=== PATIENT | female | born 2000 | race Caucasian/White ===

== ENCOUNTER 2023-07-22 09:43 | Inpatient (IN) | payer MEDICAID ==
[~2023-07-22] VITALS: Ht 152.4 cm; Wt 63.5 kg
[2023-07-22] MEDS: LACTATED RINGERS 1,000 ML IV SCH (15:00)
[2023-07-22] MEDS ORDERED: MISOPROSTOL 100MCG TABLET RC SCH (15:30)
[2023-07-22] MEDS ORDERED: METHYLERGONOVINE MALEATE 0.2 MG/ML IM PRN (15:30)
[2023-07-22] MEDS ORDERED: OXYTOCIN 30 UNITS/500ML NS PMX 500 ML IV SCH ×2 (15:30→19:45)
[2023-07-22] MEDS ORDERED: CARBOPROST TROMETHAMINE 250 MCG/ML AMPUL IM PRN (15:30)
[2023-07-22] MEDS ORDERED: MORPHINE SULFATE/PF 1MG/ML 10ML AMP ONE (17:26)
[2023-07-22] MEDS ORDERED: OXYTOCIN 10 UNITS/ML 1ML ONE (17:36)
[2023-07-22] MEDS ORDERED: DEXAMETHASONE 4MG/ML 1ML VIAL ONE (17:36)
[2023-07-22] MEDS ORDERED: CEFAZOLIN SODIUM 1000MG/VIAL ONE (17:36)
[2023-07-22] MEDS ORDERED: KETOROLAC 60MG/2ML VIAL IM ONE (17:36)
[2023-07-22] MEDS ORDERED: ONDANSETRON HCL 4MG/2ML INJ ONE (17:36)
[2023-07-22 18:09] LABS: BASOPHILS % 0.3 % (0.0-2.0); EOSINOPHILS % 0.4 % (0.0-5.0); HEMOGLOBIN. 12.7 g/dL (12.0-16.0); LYMPHOCYTES % 39.1 % (20.0-50.0); MEAN CORPUSCULAR HGB CONC 33.4 g/dL (31.0-37.0); MEAN PLATELET VOLUME 10.8 fl (7.4-10.4); MONOCYTES % 5.3 % (2.0-8.0); NEUTROPHILS % 54.9 % (40.0-76.0); PLATELET 143 x1000/uL (130-400); RED BLOOD CELL COUNT 4.23 mill/uL (4.2-5.4); RED CELL DISTRIBUTION WIDTH 16.2 % (11.6-14.6); WHITE BLOOD COUNT 6.1 x1000/uL (4.5-11.0)
[2023-07-22 18:20] LABS: INR 0.9; PARTIAL THROMBOPLASTIN TIME 25.8 sec (23.4-31.0)
[2023-07-22] MEDS ORDERED: EPHEDRINE SULFATE 50MG/ML VIAL ONE (18:56)
[2023-07-22 19:08] LABS: HEPATITIS B SURFACE ANTIGEN NEGATIVE; RUBELLA IGG 53.4 IU/mL (4.99-10)
[2023-07-22] MEDS ORDERED: MORPHINE SULFATE 10 MG/ML CPJ IV PRN (19:15)
[2023-07-22] MEDS ORDERED: NALOXONE HCL 0.4 MG/ML 1ML VIAL IV PRN (19:15)
[2023-07-22] MEDS ORDERED: FENTANYL CITRATE/PF 50MCG/ML 2ML VIAL IV PRN (19:15)
[2023-07-22] MEDS ORDERED: METOCLOPRAMIDE HCL 10MG/2ML VIAL IV PRN (19:15)
[2023-07-22] MEDS ORDERED: ONDANSETRON HCL 4MG/2ML INJ IV PRN ×2 (19:15→19:45)
[2023-07-22] MEDS ORDERED: DIPHENHYDRAMINE 50MG/ML VIAL IV PRN ×2 (19:15)
[2023-07-22] MEDS ORDERED: MORPHINE SULFATE 4 MG/ML CPJ (NOT FOR IM USE) IV PRN (19:15)
[2023-07-22 19:21] LABS: RAPID HIV SCREEN NEGATIVE (NEGATIVE)
[2023-07-22] MEDS ORDERED: DIPHENHYDRAMINE 25MG CAPSULE PO PRN (19:45)
[2023-07-22] MEDS ORDERED: HEMORRHOIDAL SUPP PR PRN (19:45)
[2023-07-22] MEDS ORDERED: LANOLIN OINT 7GM TUBE TOP PRN (19:45)
[2023-07-22] MEDS ORDERED: RHO(D) IMMUNE GLOBULIN 300 MCG/SYR IM PRN (19:45)
[2023-07-22] MEDS ORDERED: ACETAMINOPHEN WITH CODEINE 300/30MG TABLET PO PRN (19:45)
[2023-07-22] MEDS ORDERED: BISACODYL 10MG SUPP PR PRN (19:45)
[2023-07-22] MEDS ORDERED: IBUPROFEN 400MG TABLET PO PRN (19:45)
[2023-07-22] MEDS ORDERED: PV W1TAB21 PO (22:19)
[2023-07-22] MEDS ORDERED: FERR324T11 PO (22:19)
[2023-07-22 23:15] VITALS: BP 106/56; PULSE 55; RESP 18; TEMP 98.2; O2SAT 96
[2023-07-23 00:30] LABS: CLARITY URINE CLEAR (CLEAR); COLOR URINE YELLOW (YELLOW); GLUCOSE URINE NEGATIVE (NEGATIVE); KETONES URINE 4+ (NEGATIVE); LEUKOCYTE ESTERASE URINE 1+ (NEGATIVE); NITRITE URINE NEGATIVE (NEGATIVE); OCCULT BLOOD URINE 1+ (NEGATIVE); PH URINE 7.5 (4.5-8.0); PROTEIN URINE 1+ (NEGATIVE); SPECIFIC GRAVITY URINE 1.022 (1.005-1.030)
[2023-07-23 00:45] LABS: *AMPHETAMINES SCREEN URINE NEGATIVE (NEGATIVE); *BARBITURATES SCREEN URINE NEGATIVE (NEGATIVE); *BENZODIAZEPINES SCREEN URINE NEGATIVE (NEGATIVE); *COCAINE SCREEN URINE NEGATIVE (NEGATIVE); CANNABINOID URINE SCREEN NEGATIVE (NEGATIVE); ECSTASY MDMA SCREEN URINE NEGATIVE (NEGATIVE); METHADONE URINE SCREEN NEGATIVE (NEGATIVE); OPIATES URINE SCREEN NEGATIVE (NEGATIVE); PHENCYCLIDINE URINE SCREEN NEGATIVE (NEGATIVE)
[2023-07-23 01:01] LABS: BACTERIA URINE TRACE; SQUAMOUS EPITHELIAL CELL URINE FEW /lpf (RARE/1+)
[2023-07-23] MEDS: LACTATED RINGERS 1,000 ML IV SCH (03:21)
[2023-07-23] MEDS: KETOROLAC 30MG/ML VIAL IV PRN ×2 (03:54→15:27)
[2023-07-23 04:00] VITALS: BP 97/42; PULSE 65; RESP 18; TEMP 98
[2023-07-23 07:45] VITALS: BP 86/56; PULSE 65; RESP 18; TEMP 98.1; O2SAT 96
[2023-07-23 08:48] LABS: BASOPHILS % 0.1 % (0.0-2.0); HEMATOCRIT. 26.6 % (36.0-48.0); HEMOGLOBIN. 8.8 g/dL (12.0-16.0); MEAN CORPUSCULAR HEMOGLOBIN 29.8 pg (28.0-32.0); MEAN CORPUSCULAR HGB CONC 33.1 g/dL (31.0-37.0); MEAN PLATELET VOLUME 9.8 fl (7.4-10.4); MONOCYTES % 6.8 % (2.0-8.0); NEUTROPHILS % 76.1 % (40.0-76.0); PLATELET 111 x1000/uL (130-400); RED BLOOD CELL COUNT 2.95 mill/uL (4.2-5.4); RED CELL DISTRIBUTION WIDTH 15.6 % (11.6-14.6); WHITE BLOOD COUNT 7.6 x1000/uL (4.5-11.0)
[2023-07-23] MEDS: SIMETHICONE 80MG TABLET CHEW PO SCH ×4 (08:54→21:42)
[2023-07-23] MEDS: MAGNESIUM/ALUMINUM HYDROXIDE/SIMETHICONE 30ML UDC PO SCH ×4 (08:55→21:41)
[2023-07-23] MEDS: FERROUS SULFATE 325MG TABLET PO SCH ×3 (08:55→18:06)
[2023-07-23] MEDS: PRENATAL VIT/FE FUMARATE/FA TABLET PO SCH (08:55)
[2023-07-23 12:00] VITALS: BP 92/42; PULSE 65; RESP 18; TEMP 98
[2023-07-23 15:33] VITALS: BP 87/45; PULSE 65; RESP 18; TEMP 98.4
[2023-07-23 20:00] VITALS: BP 90/50; PULSE 64; RESP 18; TEMP 98.4; O2SAT 97
[2023-07-23] MEDS: DOCUSATE SODIUM 100MG CAPSULE PO SCH (21:41)
[2023-07-23] MEDS: IBUPROFEN 800MG TABLET PO PRN (21:41)
[2023-07-24 04:00] VITALS: BP 89/47; PULSE 62; RESP 18; TEMP 98.6
[2023-07-24] MEDS: IBUPROFEN 800MG TABLET PO PRN ×3 (04:14→20:15)
[2023-07-24 07:30] VITALS: BP 87/52; PULSE 72; RESP 18; TEMP 98.6; O2SAT 96
[2023-07-24] MEDS: MAGNESIUM/ALUMINUM HYDROXIDE/SIMETHICONE 30ML UDC PO SCH ×4 (07:30→20:14)
[2023-07-24] MEDS: SIMETHICONE 80MG TABLET CHEW PO SCH ×4 (08:00→20:15)
[2023-07-24] MEDS: FERROUS SULFATE 325MG TABLET PO SCH ×3 (08:12→17:08)
[2023-07-24] MEDS: PRENATAL VIT/FE FUMARATE/FA TABLET PO SCH (08:12)
[2023-07-24 09:23] LABS: BASOPHILS % 0.2 % (0.0-2.0); EOSINOPHILS % 0.7 % (0.0-5.0); HEMATOCRIT. 29.8 % (36.0-48.0); LYMPHOCYTES % 24.3 % (20.0-50.0); MEAN CORPUSCULAR HEMOGLOBIN 30.2 pg (28.0-32.0); MEAN CORPUSCULAR HGB CONC 33.5 g/dL (31.0-37.0); MEAN CORPUSCULAR VOLUME 90.3 fL (81.0-99.0); MEAN PLATELET VOLUME 9.8 fl (7.4-10.4); MONOCYTES % 4.8 % (2.0-8.0); PLATELET 136 x1000/uL (130-400); RED BLOOD CELL COUNT 3.31 mill/uL (4.2-5.4); RED CELL DISTRIBUTION WIDTH 16.1 % (11.6-14.6); WHITE BLOOD COUNT 6.8 x1000/uL (4.5-11.0)
[2023-07-24 16:00] VITALS: BP 97/50; PULSE 67; RESP 18; TEMP 98.4
[2023-07-24 20:00] VITALS: BP 99/64; PULSE 83; RESP 18; TEMP 98.2; O2SAT 97
[2023-07-24] MEDS: DOCUSATE SODIUM 100MG CAPSULE PO SCH (20:14)
[2023-07-25 04:30] VITALS: BP 91/50; PULSE 68; RESP 18; TEMP 98
[2023-07-25] MEDS: PRENATAL VIT/FE FUMARATE/FA TABLET PO SCH (08:10)
[2023-07-25] MEDS: IBUPROFEN 800MG TABLET PO PRN (08:10)
[2023-07-25] MEDS: FERROUS SULFATE 325MG TABLET PO SCH (08:11)
[2023-07-25] MEDS: SIMETHICONE 80MG TABLET CHEW PO SCH (08:11)
[2023-07-25] MEDS: MAGNESIUM/ALUMINUM HYDROXIDE/SIMETHICONE 30ML UDC PO SCH (08:29)
[2023-07-25 08:31] VITALS: O2SAT 98
[2023-07-25 09:30] VITALS: BP 95/67; PULSE 72; RESP 18; TEMP 98.1
[2023-07-25] MEDS ORDERED: IBUP-2030 MT (13:53)
== END 2023-07-25 13:00 | disposition home or self-care (01) | DRG 539 ==
LOC: 8 EST LDRP 09:43 → OBSVTOIN 09:43 → 8EST 22:42
PROVIDERS: ADMIT Obstetrics & Gynecology; ATTEND Obstetrics & Gynecology
PROC: 0UB70ZZ Excision of Bilateral Fallopian Tubes, Open Approach (ICD-10-PCS; principal; 2023-07-22)
PROC: 10D00Z1 Extraction of Products of Conception, Low, Open Approach (ICD-10-PCS; 2023-07-22)
DX: O34.211 Maternal care for low transverse scar from previous cesarean delivery (principal); D62 Acute posthemorrhagic anemia; O99.03 Anemia complicating the puerperium; Z30.2 Encounter for sterilization; Z37.0 Single live birth; Z3A.38 38 weeks gestation of pregnancy
CPT/HCPCS: 36415; 76805; 76818; 80305; 81003; 85025; 86592; 86703; 86762; 86850; 86900; 87340; 88302; 88307; 99281; J0690; J1100; J1885; J2274; J2405; J3490; J7120; A4315; J2590